=== PATIENT | female | born 2000 | race African-American/Black ===

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

== ENCOUNTER 2023-02-19 17:59 | Emergency (ER) | payer OTHER ==
[2023-02-19 18:04] VITALS: BP 157/109; PULSE 65; RESP 16; TEMP 98
--- NOTE | 2023-02-19 18:35 | ED ---
General Adult HPI - General Chief complaint: Skin/Abscess/Foreign Body Stated complaint: knot in my head Time Seen by Provider: 02/19/23 18:05 Source: patient, RN notes reviewed Mode of arrival: ambulatory Limitations: no limitations - History of Present Illness Initial comments: 22-year-old female presents to the emergency department with chief complaint of bump on her head. She states that it showed up 3 days ago and has been tender. She states that she has not been taking anything for pain at home. She states this is not having before. Denies pruritis. Denies fever, recent illness. Denies injury to her head. - Related Data Home Medications Medication Instructions Recorded Confirmed FLUoxetine HCL [PROzac] 10 mg PO QAM 10/11/18 10/11/18 FLUoxetine HCL [PROzac] 20 mg PO QAM 10/11/18 10/11/18 Allergies Allergy/AdvReac Type Severity Reaction Status Date / Time No Known Allergies Allergy Verified 10/11/18 17:27 Review of Systems ROS Statement: Those systems with pertinent positive or pertinent negative responses have been documented in the HPI. ROS Other: All systems not noted in ROS Statement are negative. 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 Absent: respiratory distress, wheezes, rales, rhonchi, stridor Cardiovascular Exam: Present: regular rate, normal rhythm, normal heart sounds. Absent: systolic murmur, diastolic murmur, rubs, gallop, clicks Skin exam: Present: warm, dry, intact, normal color. Absent: rash Course Vital Signs 02/19/23 18:01 Temperature 98 F Pulse Rate 65 Respiratory 16 Rate Blood Pressure 157/109 O2 Sat by Pulse 100 Oximetry Medical Decision Making - Medical Decision Making Was pt. sent in by a medical professional or institution (, PA, [employer], urgent care, hospital, or care home...) When possible be specific @ -No Did you speak to anyone other than the patient for history (EMS, parent, family, police, friend...)? What history was obtained from this source @ -No Did you review nursing and triage notes (agree or disagree)? Why? @ -I reviewed and agree with nursing and triage notes Were old charts reviewed (outside hosp., previous admission, EMS record, old EKG, old radiological studies, urgent care reports/EKG's, care home records)? Report findings @ -No old charts were reviewed Differential Diagnosis (chest pain, altered mental status, abdominal pain women, abdominal pain men, vaginal bleeding, weakness, fever, dyspnea, syncope, headache, dizziness, GI bleed, back pain, seizure, CVA, palpatations, mental health, musculoskeletal)? @ -Folliculitis, atopic dermatitis, abscess, cyst, this list is not all inclusive EKG interpreted by me (3pts min.). @ -none X-rays interpreted by me (1pt min.). @ -None done CT interpreted by me (1pt min.). @ -None done U/S interpreted by me (1pt. min.). @ -None done What testing was considered but not performed or refused? (CT, X-rays, U/S, labs)? Why? @ -None What meds were considered but not given or refused? Why? @ -None Did you discuss the management of the patient with other professionals (professionals i.e. , PA, [employer], lab, RT, psych nurse, geriatric social worker, sales agent [employer] insurance, teacher, air antisubmarine officer, case management director)? Give summary @ -No Was smoking cessation discussed for >3mins.? @ -No Was critical care preformed (if so, how long)? @ -No Were there social determinants of health that impacted care today? How? (Homelessness, low income, unemployed, alcoholism, drug addiction, trans portation, low edu. Level, literacy, decrease access to med. care, shelter, rehab)? @ -No Was there de-escalation of care discussed even if they declined (Discuss DNR or withdrawal of care, Hospice)? DNR status @ -No What co-morbidities impacted this encounter? (DM, HTN, Smoking, COPD, CAD, Cancer, CVA, ARF, Chemo, Hep., AIDS, mental health diagnosis, sleep apnea, morbid obesity)? @ -None Was patient admitted / discharged? Hospital course, mention meds given and route, prescriptions, significant lab abnormalities, going to OR and other pertinent info. @ -Discharged. Patient presented to the emergency department with chief complaint of lump on her head. No lump was visualized. there was no induration, erythema. Patient advised to take tylenol and motrin for pain as needed and follow up with primary care. Case discussed with my attending, Dr. Mccord. Patient discharged in stable condition. Undiagnosed new problem with uncertain prognosis? @ -No Drug Therapy requiring intensive monitoring for toxicity (Heparin, Nitro, Insulin, Cardizem)? @ -No Were any procedures done? @ -No Diagnosis/symptom? @ -scalp irritation Acute, or Chronic, or Acute on Chronic? @ -acute Uncomplicated (without systemic symptoms) or Complicated (systemic symptoms)? @ -uncomplicated Side effects of treatment? @ -No Exacerbation, Progression, or Severe Exacerbation? @ -No Poses a threat to life or bodily function? How? (Chest pain, USA, VT, pneumonia, PE, COPD, DKA, ARF, appy, cholecystitis, CVA, Diverticulitis, Homicidal, Suicidal, threat to staff... and all critical care pts) @ -No Disposition Clinical Impression: Scalp pain Disposition: HOME SELF-CARE Condition: Stable Additional Instructions: Please return to the Emergency Department if symptoms worsen or any other concerns. Is patient prescribed a controlled substance at d/c from ED?: No Referrals: Nonstaff,Physician [Primary Care Provider] - 1-2 days Time of Disposition: 18:42
== END 2023-02-19 18:45 | disposition home or self-care (01) ==
LOC: EC 17:59
DX: R51.9 Headache, unspecified (principal); F41.9 Anxiety disorder, unspecified; F32.A Depression, unspecified; Z79.899 Other long term (current) drug therapy
CPT/HCPCS: 99283

== ENCOUNTER 2024-05-12 12:41 | Emergency (ER) | payer OTHER ==
[2024-05-12 12:53] VITALS: RESP 18; TEMP 97.8
--- NOTE | 2024-05-12 14:46 | XR ---
EXAMINATION TYPE: XR ankle complete RT DATE OF EXAM: 05/12/2024 COMPARISON: NONE HISTORY: 24-year-old female with pain TECHNIQUE: 3 views FINDINGS: There is some loss of the distal tibiofibular overlap on the on the mortise view which may be projectional. Talar dome is intact. No acute fracture, subluxation, or dislocation. IMPRESSION: Some loss of the distal tibiofibular overlap on the mortise view which may be projectional. Correlate for any potential symptoms or injury mechanism that would suggest a high ankle sprain. Otherwise, no acute osseous abnormality seen.
--- NOTE | 2024-05-12 15:05 | ED ---
General Adult HPI - General Chief complaint: Extremity Injury, Lower Stated complaint: R ankle pain Time Seen by Provider: 05/12/24 12:55 Source: patient Mode of arrival: wheelchair Limitations: no limitations - History of Present Illness Initial comments: 24-year-old female presents emergency department reporting right ankle pain. States that she hit her right ankle on a table approximately 1 week ago. It continues to hurt and therefore she presents to the emergency department. She has been able to weight-bear. She denies any numbness, tingling or weakness into her foot. No hip or knee pain. She has not taken anything for pain at home. No other alleviating, precipitating or modifying factors - Related Data Home Medications Medication Instructions Recorded Confirmed FLUoxetine HCL [PROzac] 10 mg PO QAM 10/11/18 10/11/18 FLUoxetine HCL [PROzac] 20 mg PO QAM 10/11/18 10/11/18 Previous Rx's Medication Instructions Recorded Acetaminophen [Acetaminophen 8 hr] 650 mg PO Q8H PRN #30 tab 05/12/24 Ibuprofen 600 mg PO Q8H PRN #30 tab 05/12/24 Allergies Allergy/AdvReac Type Severity Reaction Status Date / Time No Known Allergies Allergy Verified 05/12/24 12:53 Review of Systems ROS Statement: Those systems with pertinent positive or pertinent negative responses have been documented in the HPI. ROS Other: All systems not noted in ROS Statement are negative. 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 There is no swelling or ecchymosis present at this time. No warmth. Patient is ambulatory. She does have full normal range of motion however painful) Neurological exam: Present: alert, oriented X3, CN II-XII intact Psychiatric exam: Present: normal affect, normal mood Skin exam: Present: warm, dry, intact, normal color. Absent: rash Course Vital Signs 05/12/24 05/12/24 12:51 15:48 Temperature 97.8 F Pulse Rate 77 74 Respiratory 18 18 Rate Blood Pressure 122/85 124/84 O2 Sat by Pulse 100 97 Oximetry Medical Decision Making - Medical Decision Making Was pt. sent in by a medical professional or institution ([facility], [facility], urgent care, hospital, or jail...) When possible be specific @ -No Did you speak to anyone other than the patient for history (EMS, parent, family, police, friend...)? What history was obtained from this source @ -No Did you review nursing and triage notes (agree or disagree)? Why? @ -I reviewed and agree with nursing and triage notes Were old charts reviewed (outside hosp., previous admission, EMS record, old EKG, old radiological studies, urgent care reports/EKG's, jail records)? Report findings @ -No old charts were reviewed Differential Diagnosis (chest pain, altered mental status, abdominal pain women, abdominal pain men, vaginal bleeding, weakness, fever, dyspnea, syncope, headache, dizziness, GI bleed, back pain, seizure, CVA, palpatations, mental health, musculoskeletal)? @ -sprain, strain, fracture EKG interpreted by me (3pts min.). @ -no X-rays interpreted by me (1pt min.). @ -yes and demonstrates no fracture CT interpreted by me (1pt min.). @ -None done U/S interpreted by me (1pt. min.). @ -None done What testing was considered but not performed or refused? (CT, X-rays, U/S, labs)? Why? @ -None What meds were considered but not given or refused? Why? @ -None Did you discuss the management of the patient with other professionals (professionals i.e. [facility], [facility], lab, RT, psych nurse, social sciences chair, sex crimes detective, teacher, hospital security officer, behavioral health case manager)? Give summary @ -No Was smoking cessation discussed for >3mins.? @ -No Was critical care preformed (if so, how long)? @ -No Were there social determinants of health that impacted care today? How? (Homelessness, low income, unemployed, alcoholism, drug addiction, transportation, low edu. Level, literacy, decrease access to med. care, fpc, rehab)? @ -No Was there de-escalation of care discussed even if they declined (Discuss DNR or withdrawal of care, Hospice)? DNR status @ -No What co-morbidities impacted this encounter? (DM, HTN, Smoking, COPD, CAD, Cancer, CVA, ARF, Chemo, Hep., AIDS, mental health diagnosis, sleep apnea, morbid obesity)? @ -None Was patient admitted / discharged? Hospital course, mention meds given and route, prescriptions, significant lab abnormalities, going to OR and other pertinent info. @ -Upon arrival patient seen and evaluated in [facility]. Thorough history and physical exam was performed. X-ray performed which demonstrates possible high ankle sprain. Patient is placed in a stirrup splint. She is to use the crutches to ambulate. Follow-up with orthopedic office. Alternate taking Motrin and Tylenol for pain and return for any new or worsening symptoms Undiagnosed new problem with uncertain prognosis? @ -No Drug Therapy requiring intensive monitoring for toxicity (Heparin, Nitro, Insulin, Cardizem)? @ -No Were any procedures done? @ -No Diagnosis/symptom? @ -Acute right ankle pain, possible acute right ankle sprain Acute, or Chronic, or Acute on Chronic? @ -Acute Uncomplicated (without systemic symptoms) or Complicated (systemic symptoms)? @ -Uncomplicated Side effects of treatment? @ -No Exacerbation, Progression, or Severe Exacerbation? @ -No Poses a threat to life or bodily function? How? (Chest pain, [place], VT, pneumonia, PE, COPD, DKA, ARF, appy, cholecystitis, CVA, Diverticulitis, Homicidal, Suicidal, threat to staff... and all critical care pts) @ -No Disposition Clinical Impression: Ankle sprain Disposition: HOME SELF-CARE Condition: Stable Instructions (If sedation given, give patient instructions): Ankle Sprain (ED) Additional Instructions: Please alternate taking Motrin with Tylenol every 4 hours for pain control. Ambulate with the crutches. Wear the splint. Follow-up with the orthopedic office for further management of your pain Prescriptions: Acetaminophen [Acetaminophen 8 hr] 650 mg PO Q8H PRN #30 tab PRN Reason: Pain Ibuprofen 600 mg PO Q8H PRN #30 tab PRN Reason: Pain Is patient prescribed a controlled substance at d/c from ED?: No Referrals: None,Stated [Primary Care Provider] - 1-2 days Dao Crane DO [Doctor of Osteopathic Medicine] - 1-2 days Time of Disposition: 15:05
[2024-05-12 15:49] VITALS: BP 124/84; PULSE 74
== END 2024-05-12 15:49 | disposition home or self-care (01) ==
LOC: EC 12:41
DX: S93.409A Sprain of unspecified ligament of unspecified ankle, initial encounter (principal); X50.0XXA Overexertion from strenuous movement or load, initial encounter
CPT/HCPCS: 99283

== ENCOUNTER 2024-06-08 14:44 | Emergency (ER) | payer OTHER | END 2024-06-08 15:12 | disposition home or self-care (01) | LOC: EC 14:44 | DX: D50.9 Iron deficiency anemia, unspecified (principal) | CPT/HCPCS: 99283 ==